=== PATIENT | male | born 1970 | race Caucasian/White ===

== ENCOUNTER 2018-02-02 10:07 | Emergency (ER) | payer BC ==
[2018-02-02] MEDS ORDERED: Tetan/Diph/Pertus SYR(Tdap)* 0.5 ML SYR(BOOSTRIX) use SYR IM ONE (10:19)
--- NOTE | 2018-02-02 10:19 | UC ---
Laceration HPI - HPI Summary HPI Summary: Left index finger cut on tin can feeder blade. - History Of Current Complaint Stated Complaint: LEFT HAND LACERATION Time Seen by Provider: 02/02/18 10:11 Hx Obtained From: Patient Laceration Location: Finger - left dorsal index finger. Mechanism Of Injury: Sharp Trauma Onset/Duration: Sudden Onset Severity: Severe Aggravating Factors: Movement Related History: Dominant Hand Right - Allergies/Home Medications Allergies/Adverse Reactions: Allergies Allergy/AdvReac Type Severity Reaction Status Date / Time Penicillins Allergy Intermediate Rash Verified 02/02/18 10:20 PMH/Surg Hx/FS Hx/Imm Hx Previously Healthy: Yes - Surgical History Surgical History: None - Family History Known Family History: Positive: Hypertension - Social History Occupation: Employed Full-time Lives: With Family Substance Use Type: None Review of Systems Is Patient Immunocompromised?: No All Other Systems Reviewed And Are Negative: Yes Physical Exam Triage Information Reviewed: Yes Appearance: Well-Appearing, Well-Nourished, Pain Distress - pale like vasovagal. Vital Signs Reviewed: Yes Eyes: Positive: Conjunctiva Clear Neck exam: Normal Respiratory Exam: Normal Cardiovascular Exam: Normal Musculoskeletal: Positive: ROM Limited @ - Left index finger. Laceration Repair - Laceration Repair 1 Description: Irregular : No Repair Necessary - unable to repair with large avulsion injury. Cleansing Completed Via Routine Prep: Yes Irrigation With Pressure Irrigation Device: Yes Diagnostics - Radiology No standard instances Xray Interpretation: No Acute Changes Radiology Interpretation Completed By: Radiologist Laceration Course/Dx - Differential Dx - Laceration/Wound Differental Diagnoses: Foreign Body, Fracture, Laceration, Tendon Laceration Provider Diagnoses: Open wound left index finger Discharge - Sign-Out/Discharge Documenting (check all that apply): Discharge/Admit/Transfer - Discharge Plan Condition: Stable Disposition: HOME Prescriptions: Cephalexin CAP* [Keflex 500 CAP*] 500 mg PO QID #12 cap Patient Education Materials: Finger Laceration (ED), Cephalexin (By mouth) Referrals: Veronica Kramer MD [Primary Care Provider] - Leeanne Fisher MD [Medical Doctor] - 1 Day (large avulsion laceration. ? skin graft needed.) Additional Instructions: Keep the dressing on until you are seen Saturday by Dr. Fisher, unless the pain is worsening. - Billing Disposition and Condition Condition: STABLE Disposition: HOME
[2018-02-02 10:22] VITALS: BP 108/66
[2018-02-02] MEDS ORDERED: Gelfoam 12-7 ADSORBABL SPONGE* 1 EA SPONGE TOPICAL ONE (10:26)
--- NOTE | 2018-02-02 10:47 | RAD ---
Indication: Knife laceration to middle and distal phalanx level of the LEFT second finger. Comparison: No relevant prior exams available on the [facility] for comparison. Technique: 3 views LEFT second finger. REPORT AND IMPRESSION: Negative for fracture or malalignment. Soft tissue swelling and suggestion of soft tissue emphysema along the medial aspect. 0.4 cm diameter hyperdensity within the soft tissue plane at the medial volar margin at the level of the diaphysis of the middle phalanx which warrants clinical correlation to exclude a retained foreign body.
== END 2018-02-02 11:06 | disposition home or self-care (01) ==
LOC: UCCORT 10:07
DX: S61.211A Laceration without foreign body of left index finger without damage to nail, initial encounter (principal); W26.9XXA Contact with unspecified sharp object(s), initial encounter; Y92.9 Unspecified place or not applicable; Z88.0 Allergy status to penicillin; Z82.49 Family history of ischemic heart disease and other diseases of the circulatory system
CPT/HCPCS: 73140; 90471; 90715; 99214; A9270-GY; G0463